=== PATIENT | female | born 1985 | race Caucasian/White ===

== ENCOUNTER 2021-10-05 15:48 | Emergency (ER) | payer OTHER, SELFPAY ==
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
[2021-10-05 15:59] VITALS: BP 122/81; PULSE 97; RESP 16; TEMP 37.1; O2SAT 99
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
--- NOTE | 2021-10-05 17:35 | PC.NURSE ---
1730- pt ambulatory to radiology.
== END 2021-10-05 18:15 | disposition home or self-care (01) ==
PROVIDERS: Emergency Provider Nurse Practitioner
DX: M54.50 Low back pain, unspecified (principal)
CPT/HCPCS: 72072; 72100; 99213; G0463

== ENCOUNTER 2021-11-07 11:49 | Outpatient (CLI) | payer OTHER, SELFPAY ==
--- NOTE | ~2021-11-07 | MMUS_ITS ---
EXAMINATION: MM diagnostic aleksandra BI w lavinia, US breast LT limited HISTORY: Palpable lump in the subareolar aspect of the left breast TECHNIQUE: Craniocaudal, mediolateral, and mediolateral oblique 3-D tomosynthesis images of the breas ts were performed and synthetic 2-D images were generated. CAD analysis was submitted and interpreted . High resolution limited left breast ultrasound was performed. COMPARISON: None, baseline BREAST PARENCHYMAL COMPOSITION: The breasts are heterogeneously dense, which may obscure small masses . FINDINGS: MAMMOGRAPHIC FINDINGS: There is no evidence of suspicious mass, calcification, or architectural distortion in either breast to suggest malignancy. No mammographic correlate is identified for the reported lump of the subareol ar left breast. ULTRASOUND: There is no evidence of focal abnormal solid or cystic mass in the vicinity of the reported palpable abnormality of concern of the left breast. IMPRESSION: 1. No specific mammographic or sonographic correlate is identified for the reported palpable abnormal ity of concern. Further evaluation at this time should be based on clinical assessment. Continued fol low-up physical examination is recommended. 2. Recommend routine screening mammography beginning at age 40. BI-RADS Category 1: Negative Reviewed, dictated and finalized at location A. ENTER GENERAL IMPRESSION: 1. No specific mammographic or sonographic correlate is identified for the repo rted palpable abnormality of concern. Further evaluation at this time should be based on clinical assessment. Continued follow-up physical examination is debbie mmended. 2. Recommend routine screening mammography beginning at age 40. BI-RADS Category 1: Negative
== END 2021-11-07 11:50 | disposition home or self-care (01) ==
LOC: ANHIMG 11:53
PROVIDERS: PCP Physician Assistant; Visit Provider Physician Assistant
DX: N63.20 Unspecified lump in the left breast, unspecified quadrant (principal)
CPT/HCPCS: 76642; 77062; 77066; G0279

== ENCOUNTER 2024-09-26 01:29 | Emergency (ER) | payer SELFPAY ==
[2024-09-26] VITALS (18 sets, daily range): BP systolic 119–162; BP diastolic 86–98; PULSE 77–112; RESP 13–26; TEMP 36.8; O2SAT 97–100
--- NOTE | ~2024-09-26 | XR_ITS ---
Portable chest x-ray Comparison: 10/25/2017 Clinical History: Shortness of breath Findings: Lungs are clear, without focal consolidation or pleural effusion. Cardiomediastinal silho uette is stable. Bones and soft tissues are unremarkable. Impression: Normal chest. Reviewed, dictated and finalized at location . 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
--- NOTE | 2024-09-26 01:50 | ED_ITS ---
HPI - Asthma General Chief Complaint: Asthma Stated Complaint: difficulty breathing Time Seen by Provider: 09/26/24 01:34 History of Present Illness HPI Narrative: 39-year-old female with a history of asthma presenting to the emergency department chief complaint of difficulty in breathing for about 1 week. She states she had a recent sinus infection feel sinus drainage and congestion in her chest. Has a cough and a sick child at home. Denies any fever chills. No chest pain, difficulty swallowing or pain in her mouth or throat. No abdominal pain, nausea or vomiting. She was otherwise in her normal state of health. She has tried some Flonase at home an albuterol inhaler with no improvement her symptoms. Was seen by her doctor several days ago and told that her symptoms do not improve that she would likely need antibiotics. She presents to the ED today for re-evaluation. States that her chest feels tight. Related Data Home Medications Medication Instructions Recorded Confirmed norgestimate 0.25 mg-ethinyl 1 tablet PO DAILY 10/05/21 10/05/21 estradiol 35 mcg tablet (Sprintec (28)) Allergies Allergy/AdvReac Type Severity Reaction Status Date / Time azithromycin Allergy Unknown Hives Verified 09/26/24 01:30 cefaclor Allergy Unknown Hives Verified 09/26/24 01:30 Review of Systems Review of Systems: As reviewed above in the HPI All systems reviewed & are unremarkable except as noted in HPI and below PMFSH Past Medical History Medical History No acute medical problems Family History Family History Other Heart disease Hypertension Social History Social History (Updated 10/05/21 @ 16:58 by Caro Marcos, MARISSA) Smoking status: Never smoker Alcohol intake: current Exam Narrative: GENERAL: [Well-appearing, well-nourished, and in no acute distress.] HEAD: [Normocephalic, atraumatic.] EYES: [PERRLA and EOMI.] ENT: Nares clear, no rhinorrhea or epistaxis. Mucous membranes moist. NECK: Supple. CHEST: Clear to auscultation bilaterally, no wheezing, rhonchi rales or any prolonged expiratory phase. Slightly tachypneic with rate of 25. No retractions or accessory muscle use HEART: [Regular rate and rhythm]. No murmur heard. [Normal peripheral pulses.] ABDOMEN: [Soft, nondistended], [nontender], [No rigidity or guarding] EXTREMITIES: Normal range of motion. [No edema.] SKIN: Warm, dry, no rash. NEURO: [No focal deficits]. Alert and oriented [x3.] PSYCH: [Normal mood and affect.] Course Vital Signs Vital signs: Vital Signs Temperature 36.8 C 09/26/24 01:33 Pulse Rate 111 H 09/26/24 01:33 Respiratory Rate 25 H 09/26/24 01:33 Blood Pressure 162/95 H 09/26/24 01:33 Pulse Oximetry 100 09/26/24 01:33 Oxygen Delivery Room Air 09/26/24 01:33 Temperature 36.8 C 09/26/24 01:33 Pulse Rate 111 H 09/26/24 01:33 Respiratory Rate 25 H 09/26/24 01:33 Blood Pressure 162/95 H 09/26/24 01:33 Pulse Oximetry 100 09/26/24 01:43 Oxygen Delivery Room Air 09/26/24 01:43 MDM - Asthma MDM Narrative Medical decision making narrative: 39-year-old female presenting with difficulty in breathing she states feels very similar to her asthma. She had a sinus infection and cough, congestion and sick contacts for last week. Was told by her primary doctor that she might need antibiotics if she is not improved with conservative therapy. She presents to the ED for re-evaluation. She is slightly tachypneic and slightly tachycardic but otherwise appears well and not any acute distress. She has clear lungs bilaterally with good air entry but no wheezing, rhonchi, rales or any prolonged expiratory phase. She has some cough during the examination and some congestion in her sinuses. No or pharyngeal process or pharyngitis. Overall appears well and conversant full sentences without any dyspnea. Will obtain a chest x-ray to assess for any kind of inflammatory process or infectious process such as pneumonia. 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 EKG was obtained given her age and tachycardia. Differential likely is bronchitis versus other reactive airway process, possible pneumonia. Very unlikely other cardiopulmonary process such as pneumothorax or ACS given her lack of risk factors are classical symptoms. Patient was re-evaluated had improvement her pulse and respirations. BP vital signs show a heart rate in the 80s. No longer tachypneic respiratory rate of 18. COVID and flu swabs were both negative. Chest x-ray independently reviewed by myself appears to be clear of any consolidations, no pneumothorax or any masses. Given patient's duration is symptoms she would likely benefit from antibiotic therapy but she has multiple allergies. Will be started on Levaquin for the next 5 days for her symptoms and also given prednisone here in the ER for bronchitis. Patient was agreeable to this plan of care and safely discharged home at this time. Medical Records Attestation: I reviewed the patient's medical records. Lab Data Attestation: I reviewed the patient's lab results. Labs: Lab Results 09/26/24 Range/Units 01:58 Influenza A (RT-PCR) Negative (Negative) Influenza B (RT-PCR) Negative (Negative) SARS-CoV-2 RNA (RT-PCR) Negative (Negative) Imaging Data Attestation: I personally reviewed and interpreted this imaging study as follows: My impression: No obvious consolidations or pneumothorax, no appreciable masses Discharge Plan Discharge Clinical Impression: Acute bronchitis Patient Disposition: Home, Self-Care Condition: Stable Instructions: Antibiotic Form, Acute Bronchitis (ED) Additional Instructions: We will send you home with antibiotics and steroids for your symptoms. These will be sent to your preferred pharmacy. Return at any point with any new or worsening concerns but you can follow-up safely with your primary care provider. Continue using thsy-ypy-eduygop therapies as well in addition to your albuterol inhaler as needed. Prescriptions: New levofloxacin 750 mg tablet 750 mg PO DAILY Qty: 5 0RF prednisone 50 mg tablet 50 mg PO DAILY 5 Days Qty: 5 0RF No Action norgestimate-ethinyl estradiol [Sprintec (28)] 0.25-35 mg-mcg tablet 1 tablet PO DAILY baclofen 10 mg tablet 10 mg PO TID Qty: 30 0RF ibuprofen 600 mg tablet 600 mg PO TID PRN (Reason: pain) Qty: 30 0RF acetaminophen-codeine 300-30 mg tablet 1 tablet PO Q6H PRN (Reason: pain) Qty: 20 0RF Follow-up/Referrals: Jay,NIKOLAS Pereyra [Primary Care Provider] - Time of Disposition: 03:16
--- NOTE | 2024-09-26 01:54 | ECG_ITS ---
Test Date: 2024-09-26 02:01:38 Measurements Intervals [place] Rate: 97 P: 70 OR: 134 QRS: 51 QRSD: 77 T: 65 QT: 355 QTc: 452 Interpretive Statements SINUS RHYTHM POSSIBLE LEFT ATRIAL ENLARGEMENT BORDERLINE ECG No previous ECG available for comparison Electronically Signed On 09-26-2024 06:22:35 GROUP SEGMENT CONSULTANT by Petros Wheeler D.O.
[2024-09-26] MEDS: ONDANSETRON HCL ODT 4 MG TABLET PO (02:26)
[2024-09-26 02:42] LABS: Influenza A QL RT-PCR Negative (Negative); Influenza B QL RT-PCR Negative (Negative); SARS-CoV-2 RNA PCR Negative (Negative)
[2024-09-26] MEDS: levoFLOXacin 750 MG TABLET PO (03:20)
[2024-09-26] MEDS: predniSONE 20 MG TABLET 60 MG PO (03:21)
[2024-09-26] MEDS: IPRATROPIUM 0.5 MG/ALBUTEROL SULFATE 2.5 MG AMPUL.NEB 3 ML INHALATION (04:15)
--- NOTE | 2024-09-26 04:15 | PC.NURSE ---
Pt stated she felt wheezy still, Dr. Carey stated she could have a neb tx if she wanted before she was discharged, pt refused
== END 2024-09-26 04:20 | disposition home or self-care (01) ==
PROVIDERS: Emergency Provider Student in an Organized Health Care Education/Training Program; PCP Physician Assistant
DX: J20.9 Acute bronchitis, unspecified (principal); Z20.822 Contact with and (suspected) exposure to COVID-19
CPT/HCPCS: 71045; 87636; 93005; 94640; 99283; A9270; J7512